=== PATIENT | female | born 1965 | race Caucasian/White ===

== ENCOUNTER → 2017-04-06 | Outpatient (CLI) | payer BC ==
--- NOTE | 2017-04-07 13:28 | MM ---
Reason for exam: screening (asymptomatic). Last mammogram was performed 2 years and 3 months ago. History: Patient is postmenopausal. Benign cyst aspiration of the left breast, 2008. Took hormonal contraceptives for 1 year beginning at age 16. Physical Findings: A clinical breast exam by your physician is recommended on an annual basis and results should be correlated with mammographic findings. MG Screening Mammo w CAD Bilateral CC and MLO view(s) were taken. Prior study comparison: December 30, 2014, bilateral MG screening mammo w CAD. October 10, 2013, bilateral digital screening mammo w/CAD. August 14, 2012, bilateral digital screening mammo w/CAD. The breast tissue is heterogeneously dense. This may lower the sensitivity of mammography. A right axillary lymph node is now better seen. No significant changes when compared with prior studies. ASSESSMENT: Negative, BI-RAD 1 RECOMMENDATION: Routine screening mammogram of both breasts in 1 year.
== END | disposition home or self-care (01) ==
LOC: RADMAMWWP 12:51
PROVIDERS: ATTEND Family Medicine
DX: Z12.31 Encounter for screening mammogram for malignant neoplasm of breast (principal)

== ENCOUNTER → 2018-04-10 | Outpatient (CLI) | payer BC ==
--- NOTE | 2018-04-10 09:16 | US ---
EXAMINATION TYPE: US abdomen complete DATE OF EXAM: 04/10/2018 COMPARISON: NONE CLINICAL HISTORY: R10.11 Right upper quadrant pain. GB removed x 1985. NPO EXAM MEASUREMENTS: Liver Length: 13.6 cm CBD: 0.6 cm CHD: 0.3 cm Spleen: 9.4 cm Right Kidney: 10.0 x 4.3 x 4.4 cm Left Kidney: 10.1 x 4.6 x 4.3 cm Pancreas: Appears heterogenous. Liver: Increased attenuation Gallbladder: Surgically absent Evidence for sonographic Deleon's sign: neg CBD: wnl CHD: wnl Spleen: wnl Right Kidney: wnl Left Kidney: wnl Upper IVC: wnl Abd Aorta: wnl The visualized liver is heterogeneously hyperechoic. Evaluation for focal masses is suboptimal due t o the heterogeneity. No intrahepatic ductal dilatation is present. Finding likely on basis of diffuse fatty infiltration. The intrahepatic portion of the IVC and visualized abdominal aorta are within no rmal limits. Gallbladder is surgically absent. Common bile duct is unremarkable. The visualized por tions of the pancreas are heterogeneous. The spleen is unremarkable. Kidneys are symmetric and free of hydronephrosis. No renal lesions are seen. IMPRESSION: No suspicious finding identified to account for patient's symptoms.
== END | disposition home or self-care (01) ==
LOC: RADUSWWP 07:45
PROVIDERS: ATTEND Family Medicine
DX: R10.11 Right upper quadrant pain (principal)
CPT/HCPCS: 76700

== ENCOUNTER → 2018-05-02 | Outpatient (CLI) | payer BC ==
--- NOTE | 2018-05-04 07:14 | MM ---
Reason for exam: screening (asymptomatic). Last mammogram was performed 1 year and 1 month ago. History: Patient is postmenopausal. Benign cyst aspiration of the left breast, 2008. Took hormonal contraceptives for 1 year beginning at age 16. Physical Findings: A clinical breast exam by your physician is recommended on an annual basis and results should be correlated with mammographic findings. MG 3D Screening Mammo W/Cad Bilateral CC and MLO view(s) were taken. Prior study comparison: April 06, 2017, bilateral MG screening mammo w CAD. December 30, 2014, bilateral MG screening mammo w CAD. The breast tissue is heterogeneously dense. This may lower the sensitivity of mammography. Dense tissues are present anteriorly on a background of scattered density. No significant changes when compared with prior studies. ASSESSMENT: Negative, BI-RAD 1 RECOMMENDATION: Routine screening mammogram of both breasts in 1 year.
== END | disposition home or self-care (01) ==
LOC: RADMAMWWP 16:46
PROVIDERS: ATTEND Family Medicine
DX: Z12.31 Encounter for screening mammogram for malignant neoplasm of breast (principal)
CPT/HCPCS: 77063; 77067

== ENCOUNTER → 2018-11-29 | Outpatient (CLI) | payer OTHER ==
[2018-11-26 14:45] VITALS: BMI 28.3
[2018-11-29 11:17] VITALS: BP 160/77; PULSE 83; RESP 16
--- NOTE | 2018-11-29 11:41 | P.CONS ---
History of Present Illness - Reason for Consult Consult date: 11/29/18 - Chief Complaint Left shoulder pain - History of Present Illness This is a 53-year-old lady with 9 months history of left shoulder pain that started with no precipitating events. 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 The pain starts at the shoulder level and radiates down to the left elbow. The patient denies any numbness or tingling in the left arm or any weakness other than difficulty getting up from the higher than her shoulder level because of the pain. The pain does wake her up at night. It gets worse by moving her left shoulder. She denies any pain with neck movement. She denies any neck pain. The patient also denies any bowel or bladder dysfunction. She had steroid injection in the left shoulder joint a few months ago however that did not help her pain as she states. She had an MRI on the left shoulder joint which showed osteoarthritis in the glenohumeral joint and she also had an MRI on the cervical spine which showed severe left neural foraminal stenosis at the C5 6 level. Past Medical History Past Medical History: GERD/Reflux, Hypertension, Osteoarthritis (OA), Thyroid Disorder Additional Past Medical History / Comment(s): DDD, BACK AND LEFT SHOULDER PAIN, MTHFR GENE, History of Any Multi-Drug Resistant Organisms: None Reported Past Surgical History: Breast Surgery, Cholecystectomy, Hysterectomy, Tonsillectomy, Uterine Ablation Additional Past Surgical History / Comment(s): LEFT BREAST BENIGN LUMP, LEEP PROCEDURE, Past Anesthesia/Blood Transfusion Reactions: Previous Problems w/ Anesthesia Additional Past Anesthesia/Blood Transfusion Reaction / Comm: LONG TIME TO WAKE UP Smoking Status: Current every day smoker - Past Family History Daughter(s) Family Medical History: Deep Vein Thrombosis (DVT) Additional Family Medical History / Comment(s): 2 DAUGHTERS WITH, LUPUS, ONE WITH MS Medications and Allergies Home Medications Medication Instructions Recorded Confirmed Type Aspirin EC [Ecotrin] 81 mg PO HS 10/07/15 11/29/18 History Cholecalciferol [Vitamin D3] 3,000 unit PO DAILY 10/07/15 11/29/18 History HYDROcodone/APAP 10-325MG [[facility] 1 tab PO BID 10/07/15 11/29/18 History 10-325] Levothyroxine Sodium [Synthroid] 88 mcg PO QAM 10/07/15 11/29/18 History Omeprazole [PriLOSEC] 20 mg PO HS 10/07/15 11/29/18 History amLODIPine [Norvasc] 5 mg PO DAILY 11/26/18 11/29/18 History Allergies Allergy/AdvReac Type Severity Reaction Status Date / Time codeine Allergy Unknown Nausea & Verified 11/29/18 10:48 Vomiting Penicillins Allergy Unknown Rash/Hives Verified 11/29/18 10:48 Physical Exam Vitals: Vital Signs Pulse Resp BP 11/29/18 11:13 83 16 160/77 - Constitutional General appearance: average body habitus - EENT Eyes: PERRLA - Respiratory Respiratory: bilateral: CTA - Cardiovascular Rhythm: regular - Neurologic Neuro exam of the upper extremities showed normal and symmetrical muscle strength She has normal and symmetrical biceps tendon reflexes and brachioradialis reflexes and absent triceps reflexes bilaterally She has decreased range of motion of the left shoulder joint with less than 90 of abduction and less than 30 of extension. There is no tenderness around the cervical spine The left shoulder joint is tender posteriorly There is mild tenderness in the left trapezius muscle She has normal range of motion of the cervical spine Neurologic: CNII-XII intact Assessment and Plan Plan: This is a 53-year-old lady with what seems to be left glenohumeral joint and also arthritis. I think the findings on her cervical spine MRI are incidental and her semptoms are mostly originating from her left shoulder. There are no neurologic changes in the left arm to refer to any cervical spine cause of pain. I will schedule the patient to have glenohumeral joint steroid injection either under fluoroscopic ultrasound guidance. If this injection does not help the patient then we will refer her back to also for possible surgery. PQRS measures: 1-Patient's medications are documented in the chart. 2-Tobacco use is positive, counseling given 3-Patient has had a pneumococcal vaccine. 4-Advanced care planning discussed, patient unable to give 5-Opioid contract not signed signed with the patient. We do not prescribe opioids. 6-Pain positive, follow-up visit or procedure scheduled 7-Patient's blood pressure measured and documented elevated and patient will follow up with her primary care physician. 8-Patient's weight was measured, and body mass index ABOVE the normal limits, and counseling was done. Patient instructed to follow up with PCP. 9-Patient WAS NOT identified as an unhealthy alcohol user. I thank you for the consultation
== END ==
LOC: PNWHC3 10:45
PROVIDERS: ATTEND Anesthesiology
DX: M13.812 Other specified arthritis, left shoulder (principal); F17.200 Nicotine dependence, unspecified, uncomplicated; Z79.899 Other long term (current) drug therapy; Z88.0 Allergy status to penicillin; Z88.5 Allergy status to narcotic agent; Z79.82 Long term (current) use of aspirin; Z79.891 Long term (current) use of opiate analgesic; Z90.49 Acquired absence of other specified parts of digestive tract; Z90.710 Acquired absence of both cervix and uterus; Z90.89 Acquired absence of other organs
CPT/HCPCS: 99211

== ENCOUNTER 2018-12-12 09:29 | Day surgery (SDC) | payer OTHER ==
[2018-12-06 15:26] VITALS: BMI 29.2
[~2018-12-12 09:29] MED LIST: SODIUM CHLORIDE 0.9% 500 ML 500 ML IV SCH
[2018-12-12 09:54] VITALS: RESP 16; TEMP 96.2
[2018-12-12] MEDS ORDERED: LACTATED RINGERS 1,000 ML IV ONE (09:59)
[2018-12-12] MEDS ORDERED: LIDOCAINE 1% 20 ML VIAL (10MG/ML) FOR IV START INTRADERMA ONE (09:59)
--- NOTE | 2018-12-12 10:43 | P.PCN ---
Date of Procedure: 12/12/18 Procedure(s) Performed: PROCEDURE: Left shoulder joint ( Glenohumeral joint ) intraarticular injection under fluoroscopy PREOPERATIVE DIAGNOSIS: Left shoulder osteoarthritis. POSTOPERATIVE DIAGNOSIS: Left shoulder osteoarthritis. ANESTHESIA: Moderate sedation. With intravenous Versed 2 mg , and fentanyl 50 micrograms, and local infiltration with lidocaine 1% 2 mL EBL: None. COMPLICATIONS: None. IV FLUIDS: 100 ml of Normal Saline PROCEDURE INDICATION: Left shoulder pain secondary to osteoarthritis. PROCEDURE DESCRIPTION: The patient was seen and identified in the preoperative area. Risks, benefits, complications, and alternatives were discussed with the patient. The patient agreed to proceed with the procedure and signed the consent. The patient was placed in the prone position on the procedure table and the Left shoulder was prepped and draped in the usual sterile fashion. We used sterile gloves for the procedure. The medial joint space was identified by fluoroscopy. Block solution was prepared with 40 mg of Depo-Medrol in 6 mL of 0.5% Ropivacaine preservative-free. A 25-gauge needle was advanced through the aforementioned site into the intraarticular space, and after negative aspiration, 6 mL of block solution was injected. Skin was cleansed, and bandage was applied. DISPOSITION / PLANS: The patient was taken back to recovery room in a stable position. . Patient was discharged from the recovery room, accompanied by an adult, after meeting discharge criteria. Home discharge instructions were given to the patient. The patient was reexamined prior to discharge. The patient will schedule a follow up visit in the clinic in 2-4 weeks.
[2018-12-12] MEDS ORDERED: IV FLUID CONTINUATION 1,000 ML IV ONE ×2 (10:45)
[2018-12-12 11:04] VITALS: BP 113/68; PULSE 97
--- NOTE | 2018-12-12 12:04 | FL ---
EXAMINATION TYPE: FL guided pain mgmt statistic DATE OF EXAM: 12/12/2018 CLINICAL HISTORY: Shoulder pain pain. TECHNIQUE: Fluoroscopy. COMPARISON: None. FINDINGS: Fluoroscopic guidance was provided during pain relief procedure performed by Dr. Jackson . A total of 7 seconds of fluoroscopic time was utilized during the procedure and 1 spot images are acquired. Images acquired shows needle localization of the glenohumeral joint. IMPRESSION: As Above.
== END 2018-12-12 11:15 | disposition home or self-care (01) ==
LOC: ORPAIN 09:29
PROVIDERS: ATTEND Specialist
DX: M19.012 Primary osteoarthritis, left shoulder (principal); Z88.5 Allergy status to narcotic agent; Z88.0 Allergy status to penicillin
CPT/HCPCS: 20610; J2250; J1030; J3010

== ENCOUNTER 2018-12-26 08:54 | Day surgery (SDC) | payer OTHER ==
[2018-12-24 17:59] VITALS: BMI 29.2
[2018-12-26] MEDS ORDERED: LACTATED RINGERS 1,000 ML IV ONE (09:25)
[2018-12-26] MEDS ORDERED: LIDOCAINE 1% 20 ML VIAL (10MG/ML) FOR IV START INTRADERMA ONE (09:25)
[2018-12-26 09:26] VITALS: TEMP 97.5
--- NOTE | 2018-12-26 10:14 | P.PCN ---
Date of Procedure: 12/26/18 Surgeon: Indra Silverio Pathology: none sent Condition: stable Disposition: PACU Description of Procedure: PROCEDURE: Left shoulder joint ( Glenohumeral joint ) intraarticular injection under fluoroscopy PREOPERATIVE DIAGNOSIS: Left shoulder osteoarthritis. POSTOPERATIVE DIAGNOSIS: Left shoulder osteoarthritis. ANESTHESIA: Moderate sedation. With intravenous Versed 2 mg , and fentanyl 100 micrograms, and local infiltration with lidocaine 1% 2 mL EBL: None. COMPLICATIONS: None. IV FLUIDS: 100 ml of Normal Saline PROCEDURE INDICATION: Left shoulder pain secondary to osteoarthritis. PROCEDURE DESCRIPTION: The patient was seen and identified in the preoperative area. Risks, benefits, complications, and alternatives were discussed with the patient. The patient agreed to proceed with the procedure and signed the consent. The patient was placed in the prone position on the procedure table and the Left shoulder was prepped and draped in the usual sterile fashion. We used sterile gloves for the procedure. The medial joint space was identified by fluoroscopy. Block solution was prepared with 40 mg of Kenalog in 4 mL of 0.5% Ropivacaine preservative-free. A 25-gauge needle was advanced through the aforementioned site into the intraarticular space, and after negative aspiration, 1 mL of Isovue was injected which showed typical spread inside the joint capsule then 5 mL of block solution was injected. Skin was cleansed, and bandage was applied. DISPOSITION / PLANS: The patient was taken back to recovery room in a stable position. . Patient was discharged from the recovery room, accompanied by an adult, after meeting discharge criteria. Home discharge instructions were given to the patient. The patient was reexamined prior to discharge. The patient will schedule a follow up visit in the clinic in 2-4 weeks.
[2018-12-26] MEDS ORDERED: IV FLUID CONTINUATION 1,000 ML IV ONE ×2 (10:17)
[2018-12-26 10:34] VITALS: BP 122/77; PULSE 75; RESP 18
--- NOTE | 2018-12-26 11:13 | FL ---
EXAMINATION TYPE: FL guided pain mgmt statistic DATE OF EXAM: 12/26/2018 FLUOROSCOPY Fluoroscopy time of 9 seconds was used during left shoulder bursal/joint steroid injection. 1 image/ s document/s the procedure.
== END 2018-12-26 11:10 | disposition home or self-care (01) ==
LOC: ORPAIN 08:54
PROVIDERS: ATTEND Anesthesiology
DX: M19.012 Primary osteoarthritis, left shoulder (principal); K21.9 Gastro-esophageal reflux disease without esophagitis; I10 Essential (primary) hypertension; M19.90 Unspecified osteoarthritis, unspecified site; E07.9 Disorder of thyroid, unspecified; E72.12 Methylenetetrahydrofolate reductase deficiency; Z79.82 Long term (current) use of aspirin; Z79.890 Hormone replacement therapy; Z79.891 Long term (current) use of opiate analgesic; Z79.899 Other long term (current) drug therapy; Z88.5 Allergy status to narcotic agent; Z88.0 Allergy status to penicillin
CPT/HCPCS: 20610; J2250; J3301; J3010; Q9966; 99152

== ENCOUNTER → 2019-01-14 | Outpatient (CLI) | payer OTHER ==
[2019-01-14 14:00] VITALS: BP 142/74; PULSE 85; RESP 16
--- NOTE | 2019-01-14 14:35 | P.PN ---
Subjective Progress Note Date: 01/14/19 Marissa is a 53-year-old female presents today with a chief complaint of left shoulder pain. She's had this pain for a while and the pain is getting worse. She is status post 2 left shoulder joint injections. She reports today did not help at all. She continues to have pain in the left shoulder which is limiting her range of motion. She has limited range of motion with reaching behind her back or reaching above her head. She has pain with any abduction or abduction of the shoulder. She does not have any numbness or tingly shooting down her arm. She denies any significant neck pain. She denies any new lower extremity weakness or any bowel or bladder incontinence. She is intolerance any ibuprofen secondary to kidney dysfunction. She does use Tylenol as needed. She has seen Dr. Clemens in the past and is requesting a referral to see a different surgeon. Objective - Vital Signs Vital signs: Vital Signs Temp Pulse 85 01/14/19 13:54 Resp 16 01/14/19 13:54 BP 142/74 01/14/19 13:54 Pulse Ox 96 01/14/19 13:54 Intake & Output 01/13/19 01/14/19 01/14/19 18:59 06:59 18:59 Weight 74.843 kg - Exam PHYSICAL EXAM: Constitutional: Awake and alert no distress Cardiovascular exam: Regular rate, no lower extremity edema, palpable pulses bilaterally Respiratory exam: No audible wheezing, no accessory muscle usage Abdominal exam: Soft nontender Muscular skeletal exam: - Cervical spine: Nontender to palpation bilaterally. Range of motion is not limited. Spurling is negative bilateral. Facet loading is negative bilaterally - Lumbar spine: Preserved lumbar lordosis. No changes in skin. Nontender palpation bilateral. Patient has full range of motion in flexion and extension as well as lateral sidebending. Straight leg raise is negative. Left shoulder: She does tend minimal tenderness to palpation over the before meals joint. There is tenderness to palpation over the subacromial bursa. She has limited range of motion with internal rotation and external rotation. She is unable to raise her left arm above her head. Busby Thiago is positive. Neer's test is positive. Neuro exam: Normal sensation bilateral upper and lower extremities. Deep tendon reflexes are 2+ bilaterally. Zhao's is negative Psychiatric exam: Cooperative, good insight Assessment and Plan Assessment: #1 left rotator cuff tendinosis #2 glenohumeral joint osteoarthritis Plan: After review of the MRI and examination the patient and discussion with the patient I do believe that she might benefit from a subacromial bursa injection. She is is status post tube glenohumeral joint injections. I discussed with her that it may offer some relief I cannot guarantee the relief. This time I'll also give her a referral to see Dr. Goncalves.
== END | disposition home or self-care (01) ==
LOC: PNWHC3 13:37
PROVIDERS: ATTEND Hospitalist
DX: M19.012 Primary osteoarthritis, left shoulder (principal); M75.92 Shoulder lesion, unspecified, left shoulder
CPT/HCPCS: 99211

== ENCOUNTER 2019-01-29 08:28 | Day surgery (SDC) | payer OTHER ==
[2019-01-28 10:26] VITALS: BMI 29.2
[~2019-01-29 08:28] MED LIST changes: +LACTATED RINGERS 1,000 ML IV SCH; -SODIUM CHLORIDE 0.9% 500 ML 500 ML IV SCH
[2019-01-29 08:50] VITALS: RESP 16; TEMP 97.5
[2019-01-29] MEDS ORDERED: LIDOCAINE 1% 20 ML VIAL (10MG/ML) FOR IV START SQ ONE (09:00)
[2019-01-29 10:21] VITALS: BP 129/80; PULSE 74
[2019-01-29] MEDS ORDERED: IV FLUID CONTINUATION 1,000 ML IV ONE (10:21)
--- NOTE | 2019-01-29 11:15 | P.PCN ---
Date of Procedure: 01/29/19 Procedure(s) Performed: Procedure= left Subacromial bursa steroid injection under ultrasound guidance Preoperative diagnosis= 1-left. subacromial bursitis 2-left shoulder arthralgia Postoperative diagnosis= same as preop diagnosis Complication = none Condition= stable Anesthesia= moderate sedation with intravenous Versed 2 mg , and fentanyl 10 micrograms . Indication for the procedure= patient complaining of left soulder pain , and she is here for his left subacromial bursa steroid injection Description of the procedure= procedure risk and benefits discussed with the patient, including but not limited, risk of infection and bleeding, and ALLERGIC reaction to the medication and not complete pain relief and patient agreed with the preceding patient taken to the operating room, placed in prone position or standard monitors applied to the patient then after induction of anesthesia back prepped with chlorhexidine 3 times , Then under strict sterile technique, under ultrasound guidance local infiltration of the skin and subcu interstitial with lidocaine 1% then 21-gauge Pujunk Needle advanced slowly under ultrasound and placed in the left subacromial bursa, needle placement confirmed with ultrasound and after negative aspiration, or heme , then Ropivacaine 0.5% 5 mL, and 40 mg of Depo-Medrol mixed together and injected ,after negative aspiration patient tolerated the procedure well without any complication.
== END 2019-01-29 10:27 | disposition home or self-care (01) ==
LOC: ORPAIN 08:28
PROVIDERS: ATTEND Specialist
DX: M75.52 Bursitis of left shoulder (principal)
CPT/HCPCS: 20611; J2250; J1030; J3010; 99152

== ENCOUNTER → 2019-02-18 | Outpatient (CLI) | payer OTHER ==
[2019-02-18 14:06] VITALS: BP 176/84; PULSE 91; RESP 16
--- NOTE | 2019-02-18 14:56 | P.PAINPG ---
Subjective Progress Note Date: 02/18/19 this is a follow-up visit for this 53 years old female, with a chronic history of left shoulder pain, we have done left shoulder steroid injections 3, he continued to have severe left shoulder pain, pain increased with any left shoulder movement, she denies any motor or sensory deficit, she denies numbness or tingling sensation, Objective - Vital Signs Vital signs: Vital Signs Temp Pulse 91 02/18/19 14:03 Resp 16 02/18/19 14:03 BP 176/84 02/18/19 14:03 Pulse Ox 96 02/18/19 14:03 Intake & Output 02/17/19 02/18/19 02/18/19 18:59 06:59 18:59 Weight 74.843 kg - Exam Physical Examinations : -Constitutiona : Cooperative , not in acute distress . -HEENT : nech ; supple , no Lymphadenopathy , normal thyroid size . eyes : no ptosis , no icterus, no photophobia . - musculoskeltal : Cervical Spine motor stregnth in the deltoid and biceps, normal right side , normal Left side motor stregnth biceps and the wrist extensors normal right side ,normal left side . motor stregnth in the triceps muscle . normal Right side , normal Left side deep tendon reflexes normal at the biceps , normal at Brachioradialis , normal at triceps. left shoulder external rotation, abduction and abduction associated with pain Assessment and Plan Plan: assessment and plan= left shoulder arthralgia , she continued to have left shoulder pain after left shoulder steroid injections Patient will be referred to orthopedic surgeon for evaluation patient currently getting prescription refill for [place] 10/325 when necessary, she will continue to get it from her primary care. she denies any side effects of the medication, She will follow with the pain clinic when necessary Time with Patient: Less than 30 PQRS Measure Charge Sheet Measure #130: Documentation of Current Meds in Medical Chart: Patient's medications documented in chart Measure #226: Tobacco Use: Screen & Cessation Intervention: Pt screened for tobacco use AND intervention given Measure #111: Pneumonia Vaccination: Pneumococcal vaccine NOT administered or previously given Measure #47: Advance Care Plan: Advance care planning discussed & documented, pt chose/unable to give Measure #412: Opioid Treatment Agreement: No documentation of signed opioid treatment agreement Measure #408: Opioid Therapy Follow-up Evaluation: Patient had NO f/u eval minimum every 3 months during opioid therapy Measure #317: Preventitive Care & Scrn High Bld Press & F/U: Pre-hypertensive or hypertensive BP documented, pt will f/u with PCP Measure #128: Body Mass Index (BMI) Screening & Follow-up: BMI documented ABOVE normal parameters - f/u documented Measure #131: Pain Assessment & Follow-up: Pain positive & plan documented, Fo llow-up PRN Measure #431: Unhealthy Alcohol Use Preventative Care & Scrn: Patient not identified as an unhealthy alcohol user PQRS Narrative: Smoking Status Current every day smoker Do You Want the Pneumonia No Vaccine AT THIS TIME? Blood Pressure 176/84 Pain Intensity [Left Shoulder] 10 Scale Used Numeric (1 - 10) Hx Alcohol Use (MH) No Home Medications: Ambulatory Orders Aspirin EC [Ecotrin] 81 mg PO HS 10/07/15 Cholecalciferol [Vitamin D3] 3,000 unit PO DAILY 10/07/15 HYDROcodone/APAP 10-325MG [[facility] 10-325] 1 tab PO BID 10/07/15 Levothyroxine Sodium [Synthroid] 88 mcg PO QAM 10/07/15 Omeprazole [PriLOSEC] 20 mg PO HS 10/07/15 amLODIPine [Norvasc] 5 mg PO DAILY 11/26/18 Controlled Substance Measures - Controlled Substance Measures Is patient prescribed a controlled substance at discharge?: No
== END | disposition home or self-care (01) ==
LOC: PNWHC3 13:35
PROVIDERS: ATTEND Specialist
DX: G89.29 Other chronic pain (principal); M25.512 Pain in left shoulder; F17.200 Nicotine dependence, unspecified, uncomplicated; Z79.891 Long term (current) use of opiate analgesic
CPT/HCPCS: 99211

== ENCOUNTER → 2019-03-05 | Outpatient (CLI) | payer OTHER ==
--- NOTE | 2019-03-05 10:15 | XR ---
Left shoulder HISTORY: Left shoulder pain 2 views of the left shoulder Bone mineralization, joint spaces and alignment are maintained. Left lung apex as visualized is girma l. IMPRESSION: Normal left shoulder.
== END | disposition home or self-care (01) ==
LOC: RADMRIMAIN 09:57
PROVIDERS: ATTEND Orthopaedic Surgery
DX: M25.512 Pain in left shoulder (principal)

== ENCOUNTER → 2019-03-11 | Outpatient (CLI) | payer OTHER ==
[2019-03-11 12:42] LABS: Basophils # (A) 0.1 k/uL (0-0.2); Basophils % (A) 1 %; Eosinophils # (A) 0.1 k/uL (0-0.7); Eosinophils % (A) 1 %; HGB 14.5 gm/dL (11.4-16.0); Lymphocytes # (A) 1.8 k/uL (1.0-4.8); Lymphocytes % (A) 25 %; MCH 28.5 pg (25.0-35.0); MCHC 32.2 g/dL (31.0-37.0); MCV 88.7 fL (80.0-100.0); Mean Platelet Volume 7.3; Monocytes # (A) 0.3 k/uL (0-1.0); Monocytes % (A) 5 %; Neutrophils # (A) 4.7 k/uL (1.3-7.7); Neutrophils % (A) 65 %; Platelet Count 335 k/uL (150-450); RBC 5.07 m/uL (3.80-5.40); RDW 13.7 % (11.5-15.5); WBC 7.2 k/uL (3.8-10.6)
[2019-03-11 12:57] LABS: Potassium 4.3 mmol/L (3.5-5.1)
== END | disposition home or self-care (01) ==
LOC: LABPAT 11:18
PROVIDERS: ATTEND Orthopaedic Surgery
DX: Z01.818 Encounter for other preprocedural examination (principal); M75.42 Impingement syndrome of left shoulder; Z01.812 Encounter for preprocedural laboratory examination
CPT/HCPCS: 36415; 80051; 85025; 93005

== ENCOUNTER 2019-03-20 06:32 | Day surgery (SDC) | payer OTHER ==
--- NOTE | 2019-03-19 13:19 | HP ---
HISTORY AND PHYSICAL Surgery is scheduled for 03/20/2019. Marissa Meneses is a 53-year-old patient seen with progressive left shoulder pain. We discussed treatment options with her. She elected to proceed with left shoulder arthroscopy. Consent was obtained. PAST MEDICAL HISTORY: Her past medical history is hypertension, hypothyroidism. PAST SURGICAL HISTORY: Cholecystectomy, hysterectomy. DAILY MEDICATIONS: Noncontributory. ALLERGIES: Allergies are PENICILLIN and CODEINE. SOCIAL HISTORY: She smokes cigarettes daily. PHYSICAL EVALUATION: Physical evaluation left shoulder: Flexion 110 degrees, abduction 70 degrees, external rotation is 40 degrees with some weakness. There is tenderness along the anterior lateral acromion and rotator cuff insertion site. Impingement sign positive at 70 degrees. Distal neurovascular exam is intact. Radiographs of the left shoulder revealed a type 2 anterior acromion and evidence for acromioclavicular joint osteoarthritis. A left shoulder MRI revealed tendinitis and osteoarthritis. IMPRESSION: Left shoulder impingement with possible rotator cuff tear. PLAN: Left shoulder arthroscopy with subacromial decompression, possible arthroscopic rotator cuff repair and debridement. MMODL / IJN: [id number] /
[~2019-03-20 06:32] MED LIST changes: -LACTATED RINGERS 1,000 ML IV SCH; +ceFAZolin IN SWFI 2 GM/20 ML SYRINGE IVP ONE
[2019-03-20] MEDS ORDERED: ONDANSETRON 4 MG/2 ML VIAL IVP ONE (07:00)
[2019-03-20] MEDS ORDERED: LIDOCAINE 1% 20 ML VIAL (10MG/ML) FOR IV START INTRADERMA ONE (07:00)
[2019-03-20] MEDS ORDERED: DEXAMETHASONE SOD PHOS (MDV) 100 MG/10 ML VIAL IV ONE (07:00)
[2019-03-20] MEDS ORDERED: fentaNYL (PF) 50 MCG/ML 2 ML AMP IV ONE (07:06)
[2019-03-20] MEDS ORDERED: MIDAZOLAM (PF) 2 MG/2 ML VIAL IV ONE (07:06)
[2019-03-20] MEDS ORDERED: LACTATED RINGERS 1,000 ML IV ONE ×2 (07:37→08:37)
[2019-03-20] MEDS ORDERED: ROCURONIUM BROMIDE 10 MG/ML 10 ML VIAL IV ONE (07:55)
[2019-03-20] MEDS ORDERED: ROPIVACAINE 5 MG/ML 30 ML VIAL ONE (07:55)
[2019-03-20] MEDS ORDERED: fentaNYL (PF) 50 MCG/ML 2 ML AMP ONE (07:55)
[2019-03-20] MEDS ORDERED: PROPOFOL 10 MG/ML 20 ML VIAL IV ONE (07:55)
[2019-03-20] MEDS ORDERED: NEOSTIGMINE 1 MG/ML 10 ML VIAL ONE (07:55)
[2019-03-20] MEDS ORDERED: LIDOCAINE 1% INJ 10MG/ML (20 ML MDV) ONE (07:55)
[2019-03-20] MEDS ORDERED: GLYCOPYRROLATE 0.2 MG/ML 2 ML VIAL ONE (07:55)
[2019-03-20] MEDS ORDERED: SUCCINYLCHOLINE CHLORIDE 100 MG/5 ML SYR IV ONE (07:55)
[2019-03-20] MEDS ORDERED: MIDAZOLAM 2 MG/2 ML VIAL ONE (07:55)
--- NOTE | 2019-03-20 07:57 | P.ANPRN ---
Procedure Note - Anesthesia - Nerve Block Performed Left Interscalene Single Time Out Performed: Yes Date of Procedure: 03/20/19 Procedure Start Time: 07:05 Location of Patient Procedure: PreOp Indication: Acute Post-Operative Pain Specifically requested for management of pain by DrTheodora: Jose Patel Sedation Type: Sedate with meaningful contact maintained Preparation: Sterile Prep Position: Supine Catheter: None Needle Types: Pajunk Needle Gauge: 21 Technique: Ultrasound Injectate: 0.5% Ropivacaine (see comment for volume) (20cc) Blood Aspirated: No Pain Paresthesia on Injection Noted: No Resistance on Injection: Normal Events: Uneventful and Well Tolerated
[2019-03-20 09:49] VITALS: TEMP 97.2
--- NOTE | 2019-03-20 09:50 | P.OP ---
Date of Procedure: 03/20/19 Preoperative Diagnosis: Left shoulder impingement Postoperative Diagnosis: 1. Left shoulder rotator cuff tear 2. Left shoulder impingement 3. Left shoulder partial long head biceps tendon tear 4. Left shoulder superficial labral tear Procedure(s) Performed: 1. Left shoulder arthroscopic rotator cuff repair 2. Left shoulder arthroscopic subacromial decompression 3. Left shoulder arthroscopic biceps tenotomy 4. Left shoulder arthroscopic debridement labral tear Implants: 14.75 Arthrex swivel lock anchor Anesthesia: GETA, regional (Interscalene block) Surgeon: Jose Patel Die Developer #1: Toby Michaud Estimated Blood Loss (ml): 12 Pathology: none sent Condition: stable Disposition: PACU Indications for Procedure: 53-year-old patient seen with progressive left shoulder pain. After treatment options were discussed with her, she elected to proceed with arthroscopy. Operative Findings: see description of procedure Description of Procedure: Patient underwent an interscalene block by department of anesthesia for postoperative pain management. The patient was then taken to the operative suite. The patient underwent a general anesthetic by the department of anesthesia. The patient was placed into a lateral position and secured. There was appropriate padding of the bony prominence. Left shoulder was then prepped and draped in normal sterile orthopedic fashion. We placed the extremity in 10 pounds of longitudinal traction. A posterior incision was now made for a posterior working portal site. The trocar and cannula were inserted into the glenohumeral joint. Arthroscopy was initiated. Spinal needle was now inserted anteriorly, to ascertain the anterior working portal site. An incision was now made in that area, a trocar was inserted followed by a probe. There was superficial tearing of the superior labrum. There was partial tearing long head biceps tendon. I could visualize rotator cuff tear from glenohumeral side. I performed an arthroscopic biceps tenotomy. I debrided that superficial labral tear down to stable tissue. The glenohumeral joint appears stable with some grade 1 chondromalacia. At this point instruments removed from glenohumeral joint. Utilizing the posterior working portal site, the trocar and cannula were inserted into the subacromial space. Arthroscopy initiated. I made an incision 2 fingerbreadths lateral to the acromion. I introduced my trocar followed by my ArthroCare ablator. I now began ablating thick subacromial bursal tissue, which exposed the undersurface of the anterior acromion. There was diminished subacromial space. There was a very prominent anterior acromion. A motorized bur was introduced and a subacromial decompression was performed. I also excised some osteophytes off the inferior aspect of the distal clavicle. The AC joint was visualized and noted to be mildly arthritic. I turned my attention to the rotator cuff tendon. There was a 1 cm tear along the anterior aspect of the distal supraspinous. I debrided those margins gained down to stable tendon tissue. I abraded the footprint with a motorized bur. I now with the assistance of Andrew MARIA passed 2 everted mattress suture through good bites of rotator cuff tendon. I now punched a hole and tore footprint for insertion of her anchor. We now passed all 4 limbs of suture through a 4.75 Arthrex swivel lock anchor. That anchor was now placed into a pre-punch hole. I held anchor/eyelid in position while Andrew MARIA appropriate tensioned the sutures and I now inserted and the anchor with good fixation noted of the anchor. All residual suture limbs were now clipped. We had good compression of the tendon along the entire footprint. I injected 1 mL Renue intra-articular. Instruments now removed from the portal sites. All portal sites were approximated with nylon suture. Sterile dressings were applied followed by a shoulder sling. Toby MARIA assisted in this complex case. The patient was awakened, transferred to a bed, and taken to recovery in stable condition.
[2019-03-20 10:38] VITALS: RESP 16
[2019-03-20 11:01] VITALS: BP 139/82; PULSE 68
== END 2019-03-20 11:32 | disposition home or self-care (01) ==
LOC: OR 06:32
PROVIDERS: ATTEND Orthopaedic Surgery
DX: M75.102 Unspecified rotator cuff tear or rupture of left shoulder, not specified as traumatic (principal); M75.42 Impingement syndrome of left shoulder; X58.XXXA Exposure to other specified factors, initial encounter; M19.012 Primary osteoarthritis, left shoulder; F17.210 Nicotine dependence, cigarettes, uncomplicated; I10 Essential (primary) hypertension; E03.9 Hypothyroidism, unspecified; Z90.49 Acquired absence of other specified parts of digestive tract; Z90.710 Acquired absence of both cervix and uterus; Z88.5 Allergy status to narcotic agent; Z88.0 Allergy status to penicillin; M75.92 Shoulder lesion, unspecified, left shoulder
CPT/HCPCS: 64415

== ENCOUNTER 2019-07-01 08:58 | Day surgery (SDC) | payer OTHER ==
[2019-06-27 15:32] VITALS: BMI 29.2
--- NOTE | 2019-06-30 09:20 | HP ---
HISTORY AND PHYSICAL REASON FOR ADMISSION: Surgery scheduled for 07/01/2019. Marissa Meneses is a 54-year-old patient seen with left shoulder adhesive capsulitis. We discussed options. She elected to proceed with manipulation under anesthesia, left shoulder steroid injection. Consent was obtained. PAST MEDICAL HISTORY: Hypothyroidism, gastroesophageal reflux disease. PAST SURGICAL HISTORY: Cholecystectomy, hysterectomy, left shoulder arthroscopy. MEDICATIONS: [place], Norvasc, Prilosec, Synthroid. ALLERGIES: CODEINE, PENICILLIN. SOCIAL HISTORY: Smokes cigarettes daily. PHYSICAL EXAMINATION: Physical evaluation of the left shoulder: Portal sites appear well healed. Flexion 90 degrees, abduction 80 degrees, external rotation 20 degrees with weakness. There is no tenderness about the anterior lateral rotator cuff insertion site. The distal neurovascular exam is intact. RADIOGRAPHS: Radiographs of the left shoulder reveal a stable conversion to a flat anterior acromion. IMPRESSION: 1. Left shoulder adhesive capsulitis. 2. History of left shoulder arthroscopy. 3. Chronic opioid use. 4. Tobacco use. 5. Hypertension. 6. Hypothyroidism. PLAN: Manipulation under anesthesia, left shoulder with steroid injection. Surgery scheduled for 07/01/2019. MMODL / IJN: [id number] /
[2019-07-01] MEDS ORDERED: LIDOCAINE 1% 20 ML VIAL (10MG/ML) FOR IV START SQ ONE (09:36)
[2019-07-01] MEDS ORDERED: LACTATED RINGERS 1,000 ML IV ONE (09:36)
[2019-07-01] MEDS ORDERED: MIDAZOLAM 2 MG/2 ML VIAL ONE (09:58)
[2019-07-01] MEDS ORDERED: LIDOCAINE 1% INJ 10MG/ML (20 ML MDV) ONE (09:58)
[2019-07-01] MEDS ORDERED: PROPOFOL 10 MG/ML 20 ML VIAL IV ONE (09:58)
[2019-07-01] MEDS ORDERED: fentaNYL (PF) 50 MCG/ML 2 ML AMP ONE (09:58)
[2019-07-01] MEDS ORDERED: methylPREDNISolone ACETATE 80 MG/ML 1 ML VIAL MISCELLANE ONE (10:10)
[2019-07-01] MEDS ORDERED: BUPIVACAINE (PF) 0.25% 30 ML VIAL MISCELLANE ONE (10:10)
--- NOTE | 2019-07-01 10:21 | P.OP ---
Date of Procedure: 07/01/19 Preoperative Diagnosis: Left shoulder adhesive capsulitis Postoperative Diagnosis: Same Procedure(s) Performed: Manipulation under anesthesia left shoulder with steroid injection Anesthesia: MAC Surgeon: Jose Patel Estimated Blood Loss (ml): 0 Pathology: none sent Condition: stable Disposition: PACU Indications for Procedure: 54 -year-old patient seen with left shoulder adhesive capsulitis. After treatment options were discussed, she elected to proceed with manipulation under anesthesia left shoulder with steroid injection. Operative Findings: see description of procedure Description of Procedure: The patient was taken to a monitored anesthesia area. The patient received IV sedation by the department of anesthesia. Once sufficient anesthesia was noted a manipulation was performed to the left shoulder achieving full range of motion with audible tearing of the adhesions. The anterior aspect of the shoulder was prepped and draped in the normal sterile orthopedic fashion and a solution of 1 mL Depo-Medrol and 4 mL quarter percent plain Marcaine were injected intra- articularly. A sterile Band-Aid was applied. The shoulder was again taken through a range of motion. The patient was awakened having tolerated procedure well.
[2019-07-01] MEDS: HYDROmorphone 1 MG/ML 1 ML SYRINGE IVP ONE ×4 (10:25→10:54)
[2019-07-01 10:48] VITALS: TEMP 98
[2019-07-01 12:06] VITALS: BP 133/76; PULSE 78; RESP 17
== END 2019-07-01 12:28 | disposition home or self-care (01) ==
LOC: OR 08:58
PROVIDERS: ATTEND Orthopaedic Surgery
DX: M75.02 Adhesive capsulitis of left shoulder (principal); E03.9 Hypothyroidism, unspecified; I10 Essential (primary) hypertension; K21.9 Gastro-esophageal reflux disease without esophagitis; Z90.49 Acquired absence of other specified parts of digestive tract; Z90.710 Acquired absence of both cervix and uterus; F17.210 Nicotine dependence, cigarettes, uncomplicated; Z97.2 Presence of dental prosthetic device (complete) (partial); Z79.890 Hormone replacement therapy; Z79.891 Long term (current) use of opiate analgesic; Z79.899 Other long term (current) drug therapy; Z88.5 Allergy status to narcotic agent; Z88.0 Allergy status to penicillin
CPT/HCPCS: 23700; J2250; J1040; J2001; J3010; J1170; J2704

== ENCOUNTER → 2019-11-22 | Outpatient (CLI) | payer OTHER ==
--- NOTE | 2019-11-22 12:15 | MR ---
EXAMINATION TYPE: MR shoulder RT wo con DATE OF EXAM: 11/22/2019 COMPARISON: Plain film 11/08/2019 HISTORY: Right shoulder pain TECHNIQUE: Multiplanar, multisequence imaging of the right shoulder is performed without contrast. FINDINGS: Rotator Cuff: There is abnormal thickening of the rotator cuff tendon, abnormal increased signal asso ciated with the tendon, fluid signal in the subacromial subdeltoid bursa. Some small focal areas of i ncreased signal on T2-weighted sequences at the levels of the anterior and posterior margins of the i nsertion of the rotator cuff likely represents small partial thickness tears of the rotator cuff. Acromioclavicular Joint: Distal acromion is downturned. Suspect there is a small spur. Acromioclavicu lar joint causes mass effect due to hypertrophic change on the musculotendinous junction of supraspin atus. Glenohumeral Joint: Intact Labrum: The labrum appears grossly intact given limitation of non-arthrogram study. Biceps Tendon: The long head of biceps is in normal location within bicipital groove. Bone marrow signal: Pseudocysts present within the humeral head. Other: Fluid signal present along the subscapularis musculotendinous junction IMPRESSION: Tendinosis with partial thickness tears suspected the rotator cuff, correlate for impingement.
== END | disposition home or self-care (01) ==
LOC: RADMRIMAIN 10:18
PROVIDERS: ATTEND Orthopaedic Surgery
DX: M25.511 Pain in right shoulder (principal)

== ENCOUNTER → 2019-11-29 | Outpatient (CLI) | payer OTHER ==
[2019-11-29 10:25] LABS: ALT 29 U/L (4-34); AST 30 U/L (14-36); African American GFR (CKD) >90 (>60 ml/min/1.73 sqM); Albumin 4.8 g/dL (3.5-5.0); Alkaline Phosphatase 104 U/L (38-126); Anion Gap 8 mmol/L; Basophils # (A) 0.1 k/uL (0-0.2); Basophils % (A) 1 %; Blood Urea Nitrogen 14 mg/dL (7-17); Calcium 9.8 mg/dL (8.4-10.2); Carbon Dioxide 27 mmol/L (22-30); Chloride 102 mmol/L (98-107); Eosinophils # (A) 0.1 k/uL (0-0.7); Eosinophils % (A) 2 %; Glucose 101 mg/dL (74-99); HCT 43.8 % (34.0-46.0); HGB 14.6 gm/dL (11.4-16.0); Lymphocytes # (A) 1.5 k/uL (1.0-4.8); Lymphocytes % (A) 26 %; MCH 28.8 pg (25.0-35.0); MCHC 33.5 g/dL (31.0-37.0); MCV 86.2 fL (80.0-100.0); Mean Platelet Volume 7.5; Monocytes # (A) 0.4 k/uL (0-1.0); Monocytes % (A) 7 %; Neutrophils # (A) 3.5 k/uL (1.3-7.7); Neutrophils % (A) 61 %; Non-African American GFR(CKD) 89 (>60 ml/min/1.73 sqM); Platelet Count 323 k/uL (150-450); RBC 5.08 m/uL (3.80-5.40); RDW 12.9 % (11.5-15.5); Sodium 137 mmol/L (137-145); Total Bilirubin 0.6 mg/dL (0.2-1.3); Total Protein 8.7 g/dL (6.3-8.2); WBC 5.7 k/uL (3.8-10.6)
== END | disposition home or self-care (01) ==
LOC: LABWHC1 09:15
PROVIDERS: ATTEND Orthopaedic Surgery
DX: Z01.812 Encounter for preprocedural laboratory examination (principal); M75.41 Impingement syndrome of right shoulder
CPT/HCPCS: 80053; 85025

== ENCOUNTER → 2019-11-29 | Outpatient (CLI) | payer OTHER ==
--- NOTE | 2019-11-29 10:12 | XR ---
EXAMINATION TYPE: XR chest 2V DATE OF EXAM: 11/29/2019 COMPARISON: NONE HISTORY: Shortness of breath on exertion TECHNIQUE: Frontal and lateral views of the chest are obtained. FINDINGS: There is no focal air space opacity, pleural effusion, or pneumothorax seen. The cardiac silhouette size is within normal limits. The osseous structures are intact. Cholecystectomy clips a re seen. IMPRESSION: No acute cardiopulmonary process.
[2019-11-29 16:07] LABS: C Reactive Protein 1.7 mg/dL (0.0-0.8); Chol/HDL Ratio 5.15; LDL Cholesterol,Calculated 163.8 mg/dL (0.0-131.0); Uric Acid 6.1 mg/dL (2.9-7.7); VLDL Calculation 35.2 mg/dL (5.00-40.00)
[2019-11-29 16:18] LABS: T4, Free (Free Thyroxine) 1.4 ng/dL (0.80-1.80)
[2019-11-29 16:52] LABS: Hemoglobin A1C 5.5 % (4.0-6.0)
[2019-12-02 10:56] LABS: ANA Pattern Speckled
== END | disposition home or self-care (01) ==
LOC: LABWHC1 09:11
PROVIDERS: ATTEND Nurse Practitioner Family
DX: R06.00 Dyspnea, unspecified (principal); M25.50 Pain in unspecified joint; I10 Essential (primary) hypertension; E78.2 Mixed hyperlipidemia; E55.9 Vitamin D deficiency, unspecified; K21.9 Gastro-esophageal reflux disease without esophagitis; Z00.00 Encounter for general adult medical examination without abnormal findings
CPT/HCPCS: 36415; 71046; 80061; 82306; 83036; 84439; 84443; 84550; 85652; 86038; 86039; 86140; 86431

== ENCOUNTER → 2020-12-25 | Outpatient (CLI) | payer OTHER ==
[2020-12-25 23:28] LABS: HCT 44.1 % (37.2-46.3); HGB 14.1 g/dL (12.0-15.0); MCH 28.3 pg (27.0-32.0); MCV 88.6 fL (80.0-97.0); Mean Platelet Volume 11.1 fL (9.5-12.2); Platelet Count 337 X 10*3/uL (140-440); RBC 4.98 X 10*6/uL (4.10-5.20); RDW 13.5 % (11.5-14.5); WBC 16.71 X 10*3/uL (4.50-10.00)
[2020-12-26 00:58] LABS: African American GFR (CKD) 94.9 (60.0-200.0); Anion Gap 8.3 mmol/L (4.00-12.00); BUN/Creat Ratio 18.75 Ratio (12.00-20.00); Calcium 10.2 mg/dL (8.7-10.3); Carbon Dioxide 23.7 mmol/L (21.6-31.8); Non-African American GFR(CKD) 81.8 (60.0-200.0); Potassium 4.5 mmol/L (3.5-5.5)
[2020-12-26 01:07] LABS: T4, Free (Free Thyroxine) 1.5 ng/dL (0.80-1.80)
== END | disposition home or self-care (01) ==
LOC: LABWHC1 11:41
PROVIDERS: ATTEND Family Medicine
DX: I10 Essential (primary) hypertension (principal); E55.9 Vitamin D deficiency, unspecified; E03.9 Hypothyroidism, unspecified
CPT/HCPCS: 36415; 80048; 82306; 84439; 84443; 84450; 84460; 85027

== ENCOUNTER → 2021-01-22 | Outpatient (CLI) | payer OTHER ==
[2021-01-22 15:31] LABS: Basophils # (A) 0.11 X 10*3/uL (0.00-0.10); Basophils % (A) 1.7 %; Eosinophils # (A) 0.17 X 10*3/uL (0.04-0.35); Eosinophils % (A) 2.7 %; HCT 41.8 % (37.2-46.3); HGB 13.5 g/dL (12.0-15.0); Lymphocytes # (A) 2.67 X 10*3/uL (0.90-5.00); Lymphocytes % (A) 42.2 %; MCH 28.4 pg (27.0-32.0); MCHC 32.3 g/dL (32.0-37.0); Mean Platelet Volume 10.6 fL (9.5-12.2); Monocytes # (A) 0.74 X 10*3/uL (0.20-1.00); Monocytes % (A) 11.7 %; Neutrophils % (A) 41.2 %; Platelet Count 333 X 10*3/uL (140-440); RBC 4.75 X 10*6/uL (4.10-5.20); RDW 13.3 % (11.5-14.5); WBC 6.32 X 10*3/uL (4.50-10.00)
[2021-01-23 03:48] LABS: T4, Free (Free Thyroxine) 1.2 ng/dL (0.80-1.80)
== END | disposition home or self-care (01) ==
LOC: LABWHC1 09:36
PROVIDERS: ATTEND Family Medicine
DX: E03.9 Hypothyroidism, unspecified (principal); D72.829 Elevated white blood cell count, unspecified
CPT/HCPCS: 36415; 84439; 84443; 85025

== ENCOUNTER → 2021-05-13 | Outpatient (CLI) | payer OTHER ==
--- NOTE | 2021-05-13 16:41 | CT ---
EXAMINATION TYPE: CT angio chest DATE OF EXAM: 05/13/2021 4:18 PM COMPARISON: Same-day radiograph. HISTORY: Dyspnea, decreased O2 sats. CT DLP: 488 mGycm Automated exposure control for dose reduction was used. CONTRAST: CTA scan of the thorax is performed with IV Contrast, patient injected with 100 mL of Isovue 370, pul monary embolism protocol. MIP images are created and reviewed. FINDINGS: LUNGS: The lungs are grossly clear, there is no concerning parenchymal mass or nodule identified. T here is no pleural effusion or pneumothorax seen. The tracheobronchial tree is patent. MEDIASTINUM: There is satisfactory enhancement of the pulmonary artery and its branches, there is no CT evidence for pulmonary embolism. There are no greater than 1 cm hilar or mediastinal lymph nodes. No pericardial effusion is seen. OTHER: No additional significant abnormality is seen. Cholecystectomy seen. IMPRESSION: NO ACUTE PE OR CARDIOPULMONARY ABNORMALITY.
== END | disposition home or self-care (01) ==
LOC: RADCTMAIN 15:53
PROVIDERS: ATTEND Internal Medicine
DX: R06.09 Other forms of dyspnea (principal)
CPT/HCPCS: 71275; Q9967

== ENCOUNTER → 2023-09-20 | Outpatient (CLI) | payer MEDICARE, OTHER ==
--- NOTE | 2023-09-20 14:20 | CTL ---
EXAMINATION TYPE: CT Low Dose Lung DATE OF EXAM ORDERED: 09/20/2023 HISTORY: 58-year-old female F17.210. Lung cancer screening. Current smoker with 35 pack-year history. CT DLP: 84.[address] CTDI: 2.4 mGy Automated exposure control for dose reduction was used. SCREENING VISIT: Baseline COMPARISON: 05/13/2021 TECHNIQUE: Low dose computed tomography scan was performed through the chest with coronal and sagitta l reconstructions. CT DIAGNOSTIC QUALITY: Satisfactory FINDINGS: Heart is normal size without pericardial effusion. Mild atherosclerotic arch calcifications. Suspect at least moderate stenoses at the origin of the lef t common carotid artery and left subclavian arteries. Conventional arch was a branching anatomy. No thoracic lymphadenopathy by CT size criteria. Minimal emphysematous change. Mild diffuse bronchial wall thickening. 4 mm lateral left midlung pulmonary nodule, axial image 127 not seen back in 2020. Benign calcified granuloma posterior left lower lobe on axial image 211. No consolidation or pleural effusion. Visualized upper abdomen shows cholecystectomy clips and some underlying fatty infiltration of the li miguel. Bones: No osseous destructive process. IMPRESSION: 1. LungRADS Category 3 (probably benign, 1-2% chance of malignancy); a new 4 mm left midlung pulmonar y nodule compared to 2020. 2. COPD with minimal emphysema. Recommend smoking cessation. CT LUNG RAD AND CT CHEST RECOMMENDATION: Lung-Rad 3 Probably Benign: 6 month follow-up LDCT. S Modifier (other clinically significant findings): None
== END | disposition home or self-care (01) ==
LOC: RADCTMAIN 10:43
PROVIDERS: ATTEND Family Medicine
DX: Z12.2 Encounter for screening for malignant neoplasm of respiratory organs (principal); F17.210 Nicotine dependence, cigarettes, uncomplicated; J44.9 Chronic obstructive pulmonary disease, unspecified; J43.9 Emphysema, unspecified
CPT/HCPCS: 71271

== ENCOUNTER → 2024-10-30 | Outpatient (CLI) | payer MEDICARE, OTHER ==
--- NOTE | 2024-10-30 11:35 | MM ---
Reason for Exam: Screening (asymptomatic). Last mammogram was performed 6 year(s) and 5 month(s) ago. Patient History: Menarche at age 10. First Full-Term at age 17. Left ovary removed at age 45. Right ovary removed at age 45. Hysterectomy at age 45. Postmenopausal. Hormonal Contraceptives for 1 year from age 16 until age 17. 2009, Benign Cyst Aspiration on the left side. Risk Values: Vanessa 5 year model risk: 1.1%. NCI Lifetime model risk: 5.2%. Prior Study Comparison: 12/30/2014 Bilateral Screening Mammogram, [facility]. 04/06/2017 Bilateral Screening Mammogram, [facility]. 05/02/2018 Bilateral Screening Mammogram, [facility]. Tissue Density: There are scattered areas of fibroglandular density. Findings: Analyzed By CAD. Right breast: There is no suspicious group of microcalcifications or new suspicious mass. Left breast: There is no suspicious group of microcalcifications or new suspicious mass. Overall Assessment: Negative, BI-RAD 1 Management: Screening Mammogram of both breasts in [address] [facility] will attempt to contact patient to return for supplemental views and ultrasound if indicated. Patient should continue monthly self-breast exams. A clinical breast exam by your physician is recommended on an annual basis. This exam should not preclude additional follow-up of suspicious palpable abnormalities. Note on Vanessa scores and lifetime risk: 1. A Vanessa score greater than 3% is considered moderate risk. If this is the case, consider specialist referral to assess eligibility for a risk reducing agent. 2. If overall lifetime risk for the development of breast cancer is 20% or higher, the patient may qualify for future screening with alternating mammogram and breast MRI. [facility], , 10/30/2024 11:32 AM. Electronically signed and approved by: Ian Anderson DO
--- NOTE | 2024-10-30 16:28 | BD ---
EXAMINATION TYPE: Axial Bone Density DATE OF EXAM: 10/30/2024 CLINICAL HISTORY: 59 years old Female. ICD-10 CODE: Z78.0 POST MENOPAUSAL , Additional History: Height: 63 in Weight: 166 lbs FRAX RISK QUESTIONS: Current Tobacco Use: yes HISTORY OF: MEDICATIONS: Thyroid Medications: yes Which medication: Synthroid How Lon+ years EXAM MEASUREMENTS: Bone mineral densitometry was performed using the [employer] System. Bone mineral density as measured about the Lumbar spine is: ----- L1-L4(G/cm2): 0.969 T Score Values are as follows: ----- L1: -1.9 ----- L2: -1.6 ----- L3: -1.4 ----- L4: -2.2 ----- L1-L4: -1.8 Z Score Values are as follows: ----- L1: -0.9 ----- L2: -0.7 ----- L3: -0.4 ----- L4: -1.3 ----- L1-L4: -0.8 Bone mineral density has: Decreased -10.4% since study of: 03/25/2014 Bone mineral density about the R hip (g/cm2): 0.911 Bone mineral density about the L hip (g/cm2): 0.858 T Score values are as follows: -----R Neck: -2.1 -----L Neck: -2.4 -----R Total: -0.8 -----L Total: -1.2 Z Score values are as follows: -----R Neck: -1.0 -----L Neck: -1.3 -----R Total: 0.0 -----L Total: -0.4 Bone mineral density has: Decreased -10.3% since study of: 03/25/2014 FRAX%s: The graph provided illustrates a 12.1% chance for a major osteoporotic fx and a 3.4% chance f or the hips probability for fx in 10 years time. IMPRESSION: Osteopenia (T Score between -2.5 and -1). Note that measurements are bordering on osteoporosis at the left hip. There is slightly increased risk of fracture and the patient may be considered for treatment. Re-Screen 2-5 years. NOTE: T-SCORE=SD OF THE YOUNG ADULT MEAN. [facility], , 10/30/2024 4:26 PM
== END | disposition home or self-care (01) ==
LOC: RADBDWWP 11:08
PROVIDERS: ATTEND Family Medicine
DX: Z12.31 Encounter for screening mammogram for malignant neoplasm of breast (principal); M81.0 Age-related osteoporosis without current pathological fracture; M85.89 Other specified disorders of bone density and structure, multiple sites; R92.323 Mammographic fibroglandular density, bilateral breasts; Z78.0 Asymptomatic menopausal state
CPT/HCPCS: 77063; 77067; 77080

== ENCOUNTER → 2024-10-30 | Outpatient (CLI) | payer MEDICARE, OTHER ==
--- NOTE | 2024-10-30 14:28 | CTL ---
EXAMINATION TYPE: CT Low Dose Lung DATE OF EXAM ORDERED: 10/30/2024 COMPARISON: 09/20/2023 CLINICAL INDICATION: Female, 59 years old with history of Z12.2 ENCNTR SCREEN FOR MALIGNANT NEOPLASM; PHH, personal tobacco use, Lung cancer screening, History of Smoking/tobacco use. TECHNIQUE: Low dose computed tomography scan was performed through the chest at 1 mm thick sections a nd reconstructed images in multiple planes at 1 mm and [address] DLP: [address] CTDI: 2.3 mGy Automated exposure control for dose reduction was used. CT DIAGNOSTIC QUALITY: Satisfactory FINDINGS: EXAMINATION TYPE: CT Low Dose Lung DATE OF EXAM ORDERED: 10/30/2024 HISTORY: Lung cancer screening CT DLP: [address] CTDI: 2.3 mGy Automated exposure control for dose reduction was used. Comparison: None TECHNIQUE: Low dose computed tomography scan was performed through the chest at 1 mm thick sections a nd reconstructed images in multiple planes at 1 mm and [address] DIAGNOSTIC QUALITY: Satisfactory FINDINGS: There is a stable 5 to 6 mm nodule in the left hilar region. . There are a few scattered stable micro nodules. The lungs are clear and there is no abnormal airspace consolidation or interstitial density. There is no mediastinal, hilar or axillary adenopathy. There is no pleural effusion, pleural thickening or pneumothorax. No focal osseous lesions are seen. Limited scans the upper abdomen reveals no gross abnormality IMPRESSION: 1. Lung rads Category 2 benign. Continue routine screening at yearly intervals. 2. No acute cardiopulmonary disease. [facility], , 10/30/2024 2:25 PM
== END | disposition home or self-care (01) ==
LOC: RADCTMAIN 11:07
PROVIDERS: ATTEND Family Medicine
DX: Z12.2 Encounter for screening for malignant neoplasm of respiratory organs (principal); F17.210 Nicotine dependence, cigarettes, uncomplicated
CPT/HCPCS: 71271